=== PATIENT | male | born 1930 | race Caucasian/White ===

== ENCOUNTER 2017-04-17 20:36 | Inpatient (IN) | payer MEDICARE ==
[~2017-04-17 20:36] MED LIST: ALBUTEROL SULFATE 90 MCG/ACT HFA 8 GM INHALER INH PRN; BENZ1CAP54 PO; BENZONATATE 100 MG CAP PO PRN; BUDE0.25 NEB; DOXA1TAB43 PO; FURO40TA PO; GABA800T PO; GUAI100S5 PO; IPRASOL INH; MEDR4PAK PO; METF500T PO; SIMV40TA PO; TRAM1CAP21 PO; VENTAER INH; ZOFR4TAB3 SL
[2017-04-17 20:45] VITALS: BP 143/81; PULSE 112; RESP 22; TEMP 97.9; O2SAT 98
[2017-04-17] MEDS: GABAPENTIN 400 MG CAP PO SCH (21:52)
[2017-04-17] MEDS ORDERED: RESP: ALBUTEROL 2.5 MG/IPRATROPIUM 0.5 MG NEB (PRN) NEB (23:30)
[2017-04-17] MEDS: RESP: BUDESONIDE 0.25 MG/2 ML NEB NEB SCH (23:37)
[2017-04-17 23:40] VITALS: O2SAT 94
[2017-04-18] VITALS (22 sets, daily range): BP systolic 106–155; BP diastolic 52–77; PULSE 80–111; RESP 12–49; TEMP 96.1–98; O2SAT 91–100
[2017-04-18] MEDS: RESP: ALBUTEROL 2.5 MG/IPRATROPIUM 0.5 MG NEB (SCH) NEB ×5 (02:56→19:26)
[2017-04-18] MEDS: GABAPENTIN 400 MG CAP PO SCH ×2 (09:00→21:08)
[2017-04-18] MEDS: FLUTICASONE PROPIONATE 50 MCG/ACT 16 GM NASAL SPRAY NASAL SCH ×2 (09:00→21:08)
[2017-04-18] MEDS ORDERED: methylPREDNISolone SOD SUCC 125 MG/2 ML VIAL IV PUSH ONE (09:15)
[2017-04-18] MEDS ORDERED: GLUCAGON 1 MG/ML VIAL OTHER PRN (09:15)
[2017-04-18] MEDS ORDERED: DEXTROSE 50% IN WATER 50 ML VIAL(D50) IV PUSH PRN (09:15)
[2017-04-18] MEDS: LEVOFLOXACIN 750 MG PREMIX INJ 150 ML IV SCH (09:21)
[2017-04-18] MEDS ORDERED: ENOXAPARIN SODIUM 40 MG/0.4 ML SYRINGE SQ SCH (09:45)
--- NOTE | 2017-04-18 09:53 | HHI.HP ---
[facility] Service [facility] Primary Care Physician Non-Staff Admission Diagnosis Cough Diagnoses: (1) Left lower lobe pneumonia (2) Asthma with COPD with exacerbation Chief Complaint: Shortness of breath Travel History International Travel<30 Days: No Contact w/Intl Traveler <30 Da: No Traveled to Known Affected Are: No Sepsis Criteria SIRS Criteria (2 or more): Heart rate over 90, RR > 20 or PaCO2 < 32 Sepsis Criteria (SIRS+source): Infect source susp/known Severe Sepsis (+one): Lactate >2 Criteria Outcome: Meets sepsis criteria History of Present Illness Written by Radha Sheridan, acting as scribe for Dr. Baca on 04/18/17 at 09:35. This is an 87-year-old elderly male patient who presented to the ED with complaints of worsening shortness of breath, wheezing and nonproductive cough. Patient is seen at bedside in severe respiratory distress and apparently accessary muscle use. Patient's daughter and son-in-law are assisting with obtaining medical records and reason for admission. His family states that he has been coughing for two days now with increasing shortness of breath. Patient does use DuoNeb's at home four times per day which offered little relief. Patient did not get a flu shot this season. Denies any recent sick contacts. Denies any recent chest pain, fever, chills, abdominal pain, nausea, vomiting or diarrhea. Patient is from [place], moved here with his family in December due to not having any electricity. Patient has not established with a PCP here and gets his medications back in [place]. Patient lives with daughter. Review of Systems Constitutional: DENIES: Fever, Chills Eyes: DENIES: Blurred vision, Diplopia Respiratory: COMPLAINS OF: Cough, Shortness of breath, DENIES: Sputum production Cardiovascular: DENIES: Chest pain, Palpitations Gastrointestinal: DENIES: Abdominal pain, Black stools, Bloody stools, Constipation, Diarrhea, Nausea, Vomiting Hematologic/lymphatic: DENIES: Bruising Immunologic/allergic: DENIES: Eczema Psychiatric: COMPLAINS OF: Anxiety Except as stated in HPI: all other systems reviewed are Neg Past Family Social History Past Medical History Asthma COPD Diabetes Kidney stones Past Surgical History Hernia repair Reported Medications Active Reported Furosemide 40 Mg Tab 40 Mg PO DAILY Gabapentin 800 Mg Tab 800 Mg PO BID Benzonatate 100 Mg Cap 100 Mg PO TID PRN Simvastatin 40 Mg Tab 40 Mg PO HS Metformin (Metformin HCl) 500 Mg Tab 500 Mg PO BIDPC Tramadol ER 24 HR (Tramadol HCl) 100 Mg Caper 50 Mg PO DAILY Doxazosin (Doxazosin Mesylate) 8 Mg Tab 8 Mg PO DAILY Ventolin Hfa 18 GM Inh (Albuterol Sulfate) 90 Mcg/Act Aer 1 Puff INH Q4H PRN Duoneb (Ipratropium-Albuterol Neb) 0.5-2.5 Mg/3 Ml Neb 1 Nebule INH Q4HR NEB Budesonide Neb 0.25 Mg/2 Ml Neb 0.25 Mg NEB Q12HR NEB Allergies: Coded Allergies: Penicillins (Verified Allergy, Unknown, 04/17/17) Active Ordered Medications Current Medications Medications (Trade) Dose Ordered Sig/Allen Route Start Time Stop Time Status Last Admin Levofloxacin/ Dextrose 150 ml @ 100 mls/hr Q24H IV 04/18/17 09:00 04/18/17 09:21 (Proair Hfa Inh) 1 puff Q4H PRN INH 04/17/17 19:00 04/18/17 09:02 (Tessalon) 100 mg TID PRN PO 04/17/17 19:00 04/17/17 21:57 (Pulmicort Respule Neb) 0.25 mg Q12HR NEB NEB 04/17/17 20:00 04/17/17 23:37 (Lasix) 40 mg DAILY PO 04/18/17 09:00 (Neurontin) 800 mg BID PO 04/17/17 21:00 (Pravachol) 80 mg HS PO 04/18/17 22:00 (Ultram) 50 mg DAILY PO 04/18/17 09:00 (Flonase Ignacio Spr) 1 spray BID NASAL 04/18/17 09:00 (Duoneb Neb) 1 ampule Q6HR NEB PRN NEB 04/18/17 09:15 (Duoneb Neb) 1 ampule Q4HR NEB NEB 04/18/17 12:00 (NovoLOG SUPPLEMENTAL SCALE) 1 ACHS SLIDING SCALE SQ 04/18/17 12:00 (D50w (Vial) Inj) 25 ml UNSCH PRN IV PUSH 04/18/17 09:15 (Glucagon Inj) 1 mg UNSCH PRN OTHER 04/18/17 09:15 Family History Reviewed. Noncontributory. Social History Denies any tobacco abuse, alcohol or illicit drug use. Physical Exam Vital Signs Vital Signs Date Time Temp Pulse Resp B/P (MAP) Pulse Ox O2 Delivery O2 Flow Rate FiO2 04/18/17 08:00 97.0 88 20 120/58 (78) 96 04/18/17 00:00 96.1 111 20 138/77 (97) 97 04/17/17 23:40 94 Nasal Cannula 2.00 04/17/17 20:45 97.9 112 22 143/81 (101) 98 Physical Exam GENERAL: Well-nourished, well-developed elderly male patient severe respiratory distress, audible wheezing and accessory muscle use. SKIN: Warm and dry. No rash. HEAD: Normocephalic. Atraumatic. EYES: Pupils equal and round. No scleral icterus. No injection or drainage. ENT: No nasal bleeding or discharge. Mucous membranes pink and moist. NECK: Supple. Trachea midline. CARDIOVASCULAR: Regular rate and rhythm. S1, S2 noted. No murmur appreciated. RESPIRATORY: Diminished breath sounds throughout. Breath sounds equal bilaterally. GASTROINTESTINAL: Abdomen soft, non-tender, nondistended. Normoactive bowel sounds x4. MUSCULOSKELETAL: No obvious deformities. Extremities without clubbing, cyanosis , or edema. NEUROLOGICAL: Awake and alert. No obvious cranial nerve deficits. Motor grossly within normal limits. 5/5 muscle strength in bilateral upper and lower extremities. Laboratory Laboratory Tests Test 04/18/17 09:15 Blood Gas Puncture Site RT RADIAL Blood Gas Patient Temperature 98.6 Blood Gas HCO3 19 Blood Gas Base Excess -3.2 Blood Gas Oxygen Saturation 95 Arterial Blood pH 7.56 Arterial Blood Partial Pressure CO2 21 Arterial Blood Partial Pressure O2 70 Arterial Blood Oxygen Content 15.9 Arterial Blood Carboxyhemoglobin 1.5 Arterial Blood Methemoglobin 0.8 Blood Gas Hemoglobin 11.9 Oxygen Delivery Device NASAL CANNULA Blood Gas Liter Flow 2 Date/Time Source Procedure Growth Status 04/18/17 06:39 Urine Random Urine Legionella Antigen Pending Received 04/18/17 06:39 Urine Random Urine Streptococcus pneumoniae Antigen (M Pending Received Septic Shock Reassessment Septic shock perfusion: reassessment completed Caprini VTE Risk Assessment Caprini VTE Risk Assessment: Mod/High Risk (score >= 2) Caprini Risk Assessment Model Point Value = 1 Point Value = 2 Point Value = 3 Point Value = 5 Age 41-60 Minor surgery BMI > 25 kg/m2 Swollen legs Varicose veins or History of unexplained or recurrent spontaneous Oral contraceptives or hormone replacement Sepsis (< 1 month) Serious lung disease, including pneumonia (< 1 month) Abnormal pulmonary function Acute myocardial infarction Congestive heart failure (< 1 month) History of inflammatory bowel disease Medical patient at bed rest Age 61-74 Arthroscopic surgery Major open surgery (> 45 min) Laparoscopic surgery (> 45 min) Malignancy Confined to bed (> 72 hours) Immobilizing plaster cast Central venous access Age >= 75 History of VTE Family history of VTE Factor V Leiden Prothrombin [id number] Lupus anticoagulant Anticardiolipin antibodies Elevated serum homocysteine Heparin-induced thrombocytopenia Other congenital or acquired thrombophilia Stroke (< 1 month) Elective arthroplasty Hip, pelvis, or leg fracture Acute spinal cord injury (< 1 month) Prophylaxis Regimen Total Risk Factor Score Risk Level Prophylaxis Regimen 0-1 Low Early ambulation 2 Moderate Order ONE of the following: *Sequential Compression Device (SCD) *Heparin 5000 units SQ BID 3-4 Higher Order ONE of the following medications: *Heparin 5000 units SQ TID *Enoxaparin/Lovenox 40 mg SQ daily (WT < 150 kg, CrCl > 30 mL/min) *Enoxaparin/Lovenox 30 mg SQ daily (WT < 150 kg, CrCl > 10-29 mL/min) *Enoxaparin/Lovenox 30 mg SQ BID (WT < 150 kg, CrCl > 30 mL/min) AND/OR *Sequential Compression Device (SCD) 5 or more Highest Order ONE of the following medications: *Heparin 5000 units SQ TID (Preferred with Epidurals) *Enoxaparin/Lovenox 40 mg SQ daily (WT < 150 kg, CrCl > 30 mL/min) *Enoxaparin/Lovenox 30 mg SQ daily (WT < 150 kg, CrCl > 10-29 mL/min) *Enoxaparin/Lovenox 30 mg SQ BID (WT < 150 kg, CrCl > 30 mL/min) AND *Sequential Compression Device (SCD) Assessment and Plan Problem List: (1) Asthma with COPD with exacerbation ICD Code: J44.1 - Chronic obstructive pulmonary disease with (acute) exacerbation; J45.901 - Unspecified asthma with (acute) exacerbation (2) Left lower lobe pneumonia ICD Code: J18.1 - Lobar pneumonia, unspecified organism (3) Hyperlipidemia ICD Code: E78.5 - Hyperlipidemia, unspecified (4) Type 2 diabetes mellitus ICD Code: E11.9 - Type 2 diabetes mellitus without complications Assessment and Plan This is an 87-year-old male with a history of COPD who presents for cough and wheezing. His family states that he has been coughing for two days now with increasing shortness of breath. Asthma with COPD with acute exacerbation Left lower lobe community-acquired pneumonia, meet sepsis criteria (tachycardia , tachypnea, lactic acidosis) Rule out PE Patient with acute respiratory distress and respiratory alkalosis. STAT ABG obtained. Chest x-ray reviewed showing bibasilar pneumonia crater left lower lobe. D-dimer ordered and pending. Follow. Lactic acid per protocol. Was given azithromycin and cefepime in ED. Patient placed on Levaquin IV. Gentle hydration. BNP pending. Continue DuoNeb's scheduled and when necessary as needed. Continue home inhalers. Patient given methylprednisone 1 in ED. Now scheduled. Patient transferred to ICU for closer monitoring. Obtain labs including BNP, mag and phosphorus, and B12. Follow. Consult placed pulmonology, appreciate input and further recommendations. Continue supplemental O2 as needed. Supportive care. Hyperlipidemia: Restart home statin. Type 2 diabetes, chronic: Accu-Cheks before meals and at bedtime, sliding scale , cover as needed. Monitor blood sugars. DVT prophylaxis: SCDs. Code Status Alternative code: No intubation. CPR and cardiac medications. Discussed Condition With Patient's daughter. Physician Certification 2 Midnight Certification Type: Admission for Inpatient Services Order for Inpatient Services The services are ordered in accordance with Medicare regulations or non- Medicare payer requirements, as applicable. In the case of services not specified as inpatient-only, they are appropriately provided as inpatient services in accordance with the 2-midnight benchmark. Estimated LOS (days): 3 3 days is the estimated time the patient will need to remain in the hospital, assuming treatment plan goals are met and no additional complications. Post-Hospital Plan: Not yet determined Notes: This note was transcribed by stephen Sheridan. I, Dr. Oziel Baca personally performed the history, physical exam, and medical decision making; and confirmed the accuracy of the information in the transcribed note. Authenticated by Dr. Oziel Baca on 04/18/17 at 20:42. Radha Sheridan Apr 18, 2017 09:53 Oziel Baca MD Apr 18, 2017 20:42
[2017-04-18] MEDS ORDERED: ENOXAPARIN SODIUM 80 MG/0.8 ML SYRINGE SQ ONE (10:00)
[2017-04-18] MEDS ORDERED: GABAPENTIN 400 MG CAP PO ONE (10:00)
[2017-04-18] MEDS ORDERED: SODIUM CHLORID 0.9% 500 ML INJ 500 ML IV ONE (10:00)
[2017-04-18] MEDS ORDERED: ALPRAZolam 1 MG TAB PO ONE (10:00)
[2017-04-18] MEDS: traMADol HCL 50 MG TAB PO SCH (10:17)
[2017-04-18] MEDS: FUROSEMIDE 40 MG TAB PO SCH (10:17)
[2017-04-18 10:54] LABS: AUTOMATED NEUTROPHIL # 7.6 TH/MM3 (1.8-7.7); BASOPHIL # 0.2 TH/MM3 (0-0.2); BASOPHIL % 2.4 % (0.0-2.0); EOSINOPHIL % 0.3 % (0.0-4.0); HEMATOCRIT 33.7 % (39.0-51.0); HEMOGLOBIN 11.3 GM/DL (13.0-17.0); LYMPH % 13.5 % (9.0-44.0); LYMPHOCYTE # 1.3 TH/MM3 (1.0-4.8); MEAN CELL VOLUME 100.6 FL (80.0-100.0); MEAN CORPUSCULAR HEMOGLOBIN 33.8 PG (27.0-34.0); MEAN CORPUSCULAR HGB CONC 33.7 % (32.0-36.0); MEAN PLATELET VOLUME 7.6 FL (7.0-11.0); MONO % 6.4 % (0.0-8.0); MONOCYTE # 0.6 TH/MM3 (0-0.9); NEUT % 77.4 % (16.0-70.0); PLATELET COUNT 270 TH/MM3 (150-450); RED BLOOD COUNT 3.35 MIL/MM3 (4.50-5.90); WHITE BLOOD COUNT 9.7 TH/MM3 (4.0-11.0)
[2017-04-18 10:57] LABS: CHLORIDE 106 MEQ/L (98-107); SODIUM (NA) 139 MEQ/L (136-145)
[2017-04-18 11:00] LABS: ALBUMIN 3.1 GM/DL (3.4-5.0); CALCIUM 8.8 MG/DL (8.5-10.1)
[2017-04-18 11:01] LABS: BICARBONATE 21.1 MEQ/L (21.0-32.0); BLOOD UREA NITROGEN 20 MG/DL (7-18); GLUCOSE,RANDOM 138 MG/DL (74-106); MAGNESIUM 2.1 MG/DL (1.5-2.5)
[2017-04-18 11:03] LABS: ALT (GPT) 13 U/L (12-78)
[2017-04-18 11:04] LABS: AST (GOT) 18 U/L (15-37); GLOMERULAR FILTRATION RATE 63 ML/MIN (>89); PHOSPHORUS 1.2 MG/DL (2.5-4.9)
[2017-04-18 11:05] LABS: TOTAL BILIRUBIN ADULT 0.4 MG/DL (0.2-1.0); TOTAL PROTEIN 6.9 GM/DL (6.4-8.2)
[2017-04-18 11:06] LABS: ALKALINE PHOSPHATASE 43 U/L (45-117)
[2017-04-18] MEDS: OXYMETAZOLINE HCL 0.05% 15 ML NASAL SPRAY NASAL SCH ×2 (12:00→21:08)
[2017-04-18] MEDS: RESP: BUDESONIDE 0.25 MG/2 ML NEB NEB SCH ×2 (12:12→19:25)
[2017-04-18] MEDS ORDERED: POTASSIUM PHOSPHATE INJ 15 MMOL in SODIUM CHLORIDE 0.9% INJ 150 ML IV ONE (13:00)
[2017-04-18] MEDS: methylPREDNISolone SOD SUCC 40 MG/1 ML VIAL IV PUSH SCH ×2 (13:33→21:10)
[2017-04-18] MEDS: INSULIN ASPART SUPPLEMENTAL SCALE SQ SCH ×3 (13:33→21:20)
[2017-04-18] MEDS ORDERED: IOHEXOL 350 MG/ML 10 ML VIAL (for RAD DIAG) IVCONTRAST ONE (18:39)
--- NOTE | 2017-04-18 18:47 | RADRPT ---
EXAM DATE/TIME: 04/18/2017 18:30 [facility] COMPARISON: No previous studies available for comparison. INDICATIONS : Short of breath, cough and wheezing x 2 days. IV CONTRAST: 75 cc Omnipaque 350 (iohexol) IV RADIATION DOSE: 18.88 CTDIvol (mGy) MEDICAL HISTORY : Diabetes mellitus type 2. Chronic obstructive pulmonary disease. Renal calculi.Hypertension. Asthma. SURGICAL HISTORY : None. ENCOUNTER: Initial ACUITY: 2 days PAIN SCALE: 0/10 LOCATION: chest TECHNIQUE: Volumetric scanning of the chest was performed using a pulmonary embolism protocol MIP images were re constructed. Using automated exposure control and adjustment of the mA and/or kV according to patien t size, radiation dose was kept as low as reasonably achievable to obtain optimal diagnostic quality images. DICOM format image data is available electronically for review and comparison. Follow-up recommendations for detected pulmonary nodules are based at a minimum on nodule size and pa tient risk factors according to Fleischner Society Guidelines. FINDINGS: There is no pulmonary embolus. Patchy areas of dense and somewhat nodular consolidation are seen in both mid and lower lungs with a posterior, basilar predominant distribution. No effusion or pneumothorax. No mediastinal, hilar or axillary lymphadenopathy. Heart size within normal limits. Old, healed right rib fractures. Also a large cyst of the right kidney and a small hiatal hernia seen. are noted. CONCLUSION: 1. No pulmonary embolus. 2. Basilar predominant bilateral pneumonia, presumably infectious or inflammatory. Some of the areas of consolidation are somewhat nodular in configuration. Medical management/follow up recommended and with a followup noncontrast chest CT in approximately 3-6 months. 3. Old, healed right rib fractures. Also a cyst of the right kidney and small hiatal hernia incidenta lly noted. Tapan Goddard MD on April 18, 2017 at 18:42 Board Certified Radiologist. This report was verified electronically.
[2017-04-18] MEDS ORDERED: ALPRAZolam 0.25 MG TAB PO PRN (20:15)
[2017-04-18] MEDS ORDERED: traMADol HCL 50 MG TAB PO PRN (20:15)
[2017-04-18] MEDS ORDERED: ENOXAPARIN SODIUM 80 MG/0.8 ML SYRINGE SQ SCH (21:00)
[2017-04-18] MEDS: PRAVASTATIN SOD 80 MG TAB PO SCH (22:22)
[2017-04-18] MEDS: BUDESONIDE-FORMOTEROL 80/4.5 MCG INHALER INH SCH (22:22)
[2017-04-19] VITALS (30 sets, daily range): BP systolic 85–162; BP diastolic 39–82; PULSE 72–112; RESP 13–41; TEMP 97.6–98.6; O2SAT 85–99
[2017-04-19] MEDS: RESP: ALBUTEROL 2.5 MG/IPRATROPIUM 0.5 MG NEB (PRN) NEB (04:18)
[2017-04-19 04:52] LABS: AUTOMATED NEUTROPHIL # 9.4 TH/MM3 (1.8-7.7); BASOPHIL # 0.6 TH/MM3 (0-0.2); BASOPHIL % 4.9 % (0.0-2.0); EOSINOPHIL % 0.1 % (0.0-4.0); HEMATOCRIT 36.5 % (39.0-51.0); HEMOGLOBIN 12.3 GM/DL (13.0-17.0); LYMPH % 7.5 % (9.0-44.0); LYMPHOCYTE # 0.8 TH/MM3 (1.0-4.8); MEAN CELL VOLUME 99.9 FL (80.0-100.0); MEAN CORPUSCULAR HEMOGLOBIN 33.7 PG (27.0-34.0); MEAN CORPUSCULAR HGB CONC 33.7 % (32.0-36.0); MEAN PLATELET VOLUME 7.8 FL (7.0-11.0); MONO % 4.6 % (0.0-8.0); MONOCYTE # 0.5 TH/MM3 (0-0.9); NEUT % 82.9 % (16.0-70.0); PLATELET COUNT 233 TH/MM3 (150-450); RED BLOOD COUNT 3.66 MIL/MM3 (4.50-5.90); RED CELL DISTRIBUTION WIDTH 12.9 % (11.6-17.2); WHITE BLOOD COUNT 11.3 TH/MM3 (4.0-11.0)
[2017-04-19 05:06] LABS: ALBUMIN 3.3 GM/DL (3.4-5.0)
[2017-04-19 05:07] LABS: BICARBONATE 26.3 MEQ/L (21.0-32.0); CALCIUM 8.4 MG/DL (8.5-10.1); MAGNESIUM 2.2 MG/DL (1.5-2.5)
[2017-04-19 05:10] LABS: CREATININE 1.1 MG/DL (0.60-1.30)
[2017-04-19 05:16] LABS: PHOSPHORUS 3.9 MG/DL (2.5-4.9)
[2017-04-19] MEDS: methylPREDNISolone SOD SUCC 40 MG/1 ML VIAL IV PUSH SCH ×2 (06:36→18:00)
[2017-04-19] MEDS: RESP: ALBUTEROL 2.5 MG/IPRATROPIUM 0.5 MG NEB (SCH) NEB ×4 (07:22→19:36)
[2017-04-19] MEDS: RESP: BUDESONIDE 0.25 MG/2 ML NEB NEB SCH (07:23)
[2017-04-19] MEDS: INSULIN ASPART SUPPLEMENTAL SCALE SQ SCH ×4 (08:00→21:00)
[2017-04-19] MEDS: FLUTICASONE PROPIONATE 50 MCG/ACT 16 GM NASAL SPRAY NASAL SCH ×2 (09:00→21:54)
[2017-04-19] MEDS: OXYMETAZOLINE HCL 0.05% 15 ML NASAL SPRAY NASAL SCH ×2 (09:00→21:54)
[2017-04-19] MEDS: BUDESONIDE-FORMOTEROL 80/4.5 MCG INHALER INH SCH ×2 (09:00→21:54)
[2017-04-19] MEDS ORDERED: ENOXAPARIN SODIUM 40 MG/0.4 ML SYRINGE SQ SCH (10:00)
[2017-04-19] MEDS: LEVOFLOXACIN 750 MG PREMIX INJ 150 ML IV SCH (10:40)
[2017-04-19] MEDS: traMADol HCL 50 MG TAB PO SCH (10:41)
[2017-04-19] MEDS: GABAPENTIN 400 MG CAP PO SCH ×2 (10:42→21:54)
[2017-04-19] MEDS: FUROSEMIDE 40 MG TAB PO SCH (10:42)
--- NOTE | 2017-04-19 13:23 | HHI.PR ---
Subjective Remarks Follow-up asthma with COPD with acute exacerbation and pneumonia. Patient seen and examined, sitting up on bedside commode. Patient has improved overnight, still with continued expiratory diffuse wheezing and posterior lobes. On supplemental O2. States he feels much better. Eating well. Denies any chest pain or abdominal pain or nausea, vomiting or diarrhea. Objective Vitals Vital Signs Date Time Temp Pulse Resp B/P (MAP) Pulse Ox O2 Delivery O2 Flow Rate FiO2 04/19/17 07:23 98 Nasal Cannula 3.00 04/19/17 06:44 97.9 87 20 127/64 (85) 94 04/19/17 05:06 93 18 121/60 (80) 93 04/19/17 04:23 94 15 162/75 (104) 92 04/19/17 03:00 72 20 114/62 (79) 97 04/19/17 02:00 76 13 101/56 (71) 98 04/19/17 01:00 82 18 149/80 (103) 95 04/19/17 00:00 97.6 94 21 129/66 (87) 96 04/18/17 23:10 80 22 128/63 (84) 98 04/18/17 22:23 81 20 113/62 (79) 95 04/18/17 21:00 86 12 126/62 (83) 99 04/18/17 19:25 93 Nasal Cannula 3.00 04/18/17 19:20 90 26 135/63 (87) 91 04/18/17 18:00 88 17 133/67 (89) 93 04/18/17 17:47 92 36 155/70 (98) 97 04/18/17 16:01 82 14 113/58 (76) 04/18/17 16:00 98.0 04/18/17 15:01 88 17 107/66 (80) 04/18/17 14:01 94 19 120/61 (80) I/O 04/18/17 04/18/17 04/18/17 04/19/17 04/19/17 04/19/17 07:00 15:00 23:00 07:00 15:00 23:00 Intake Total 740 ml 155 ml Output Total 375 ml 700 ml Balance 740 ml -220 ml -700 ml Intake Oral 240 ml IV Total 500 ml 155 ml Output Urine Total 375 ml 700 ml # Voids 3 # Bowel Movements 0 1 Result Diagram: 04/19/17 0435 04/19/17 [address] Angiography 04/18/17 0000 Signed Impressions: Service Date/Time: March 18:30 - CONCLUSION: 1. No pulmonary embolus. 2. Basilar predominant bilateral pneumonia, presumably infectious or inflammatory. Some of the areas of consolidation are somewhat nodular in configuration. Medical management/follow up recommended and with a followup noncontrast chest CT in approximately 3-6 months. 3. Old, healed right rib fractures. Also a cyst of the right kidney and small hiatal hernia incidentally noted. Tapan Goddard MD Objective Remarks GENERAL: Well-nourished, well-developed patient On supplemental O2 with mild accessory muscle use SKIN: Warm and dry. No rash. HEAD: Normocephalic. Atraumatic. EYES: Pupils equal and round. No scleral icterus. No injection or drainage. ENT: No nasal bleeding or discharge. Mucous membranes pink and moist. NECK: Supple. Trachea midline. CARDIOVASCULAR: Regular rate and rhythm. S1, S2 noted. No murmur appreciated. RESPIRATORY: No accessory muscle use. Expiratory diffuse wheezing to posterior lobes. Breath sounds equal bilaterally. GASTROINTESTINAL: Abdomen soft, non-tender, nondistended. Normoactive bowel sounds x4. MUSCULOSKELETAL: No obvious deformities. Extremities without clubbing, cyanosis , or edema. NEUROLOGICAL: Awake and alert. No obvious cranial nerve deficits. Motor grossly within normal limits. 5/5 muscle strength in bilateral upper and lower extremities. Normal speech. PSYCHIATRIC: Appropriate mood and affect; insight and judgment normal. A/P Problem List: (1) Asthma with COPD with exacerbation ICD Code: J44.1 - Chronic obstructive pulmonary disease with (acute) exacerbation; J45.901 - Unspecified asthma with (acute) exacerbation (2) Left lower lobe pneumonia ICD Code: J18.1 - Lobar pneumonia, unspecified organism (3) Hyperlipidemia ICD Code: E78.5 - Hyperlipidemia, unspecified (4) Type 2 diabetes mellitus ICD Code: E11.9 - Type 2 diabetes mellitus without complications Assessment and Plan This is an 87-year-old male with a history of COPD who presents for cough and wheezing. His family states that he has been coughing for two days now with increasing shortness of breath. Asthma with COPD with acute exacerbation Left lower lobe community-acquired pneumonia, meet sepsis criteria (tachycardia , tachypnea, lactic acidosis) Rule out PE Patient with acute respiratory distress and respiratory alkalosis. STAT ABG obtained. Chest x-ray reviewed showing bibasilar pneumonia crater left lower lobe. D-dimer mildly elevated. CTA performed showing no PE, bilateral pneumonia with some areas of consolidation. Was given azithromycin and cefepime in ED. Patient placed on Levaquin IV. Gentle hydration. BNP90. Continue DuoNeb's scheduled and when necessary as needed. Continue home inhalers. Patient given methylprednisone 1 in ED. Now scheduled. Will increase dose today, continued wheezing. Patient transferred to ICU for closer monitoring. Monitor BNP, mag and phosphorus, and B12. Consult placed pulmonology, appreciate input and further recommendations. Following patient. Continue supplemental O2 as needed. Supportive care. Hyperlipidemia: Restart home statin. Type 2 diabetes, chronic: Accu-Cheks before meals and at bedtime, sliding scale , cover as needed. Monitor blood sugars. DVT prophylaxis: SCDs. Radha Sheridan Apr 19, 2017 13:23
--- NOTE | 2017-04-19 18:46 | HHI.PR ---
Subjective Remarks Has some cough and wheezing. No fever. C/O Abdominal Discomfort. Objective Vital Signs Date Time Temp Pulse Resp B/P (MAP) Pulse Ox O2 Delivery O2 Flow Rate FiO2 04/19/17 17:00 104 23 93 04/19/17 16:37 98 35 97/57 (70) 97 04/19/17 16:14 106 24 85/39 (54) 99 04/19/17 16:00 100 25 85/39 (54) 98 04/19/17 15:41 100 30 114/56 (75) 98 04/19/17 15:00 108 38 98/53 (68) 99 04/19/17 14:00 112 41 118/72 (87) 96 04/19/17 13:00 98.3 100 33 102/58 (73) 04/19/17 12:00 102 34 99/50 (66) 04/19/17 11:00 90 24 110/54 (72) 04/19/17 10:00 78 13 101/51 (68) 04/19/17 09:00 80 14 97/49 (65) 04/19/17 08:00 98.3 78 14 115/70 (85) 04/19/17 07:23 98 Nasal Cannula 3.00 04/19/17 07:00 84 15 109/63 (78) 04/19/17 06:44 97.9 87 20 127/64 (85) 94 04/19/17 05:06 93 18 121/60 (80) 93 04/19/17 04:23 94 15 162/75 (104) 92 04/19/17 03:00 72 20 114/62 (79) 97 04/19/17 02:00 76 13 101/56 (71) 98 04/19/17 01:00 82 18 149/80 (103) 95 04/19/17 00:00 97.6 94 21 129/66 (87) 96 04/18/17 23:10 80 22 128/63 (84) 98 04/18/17 22:23 81 20 113/62 (79) 95 04/18/17 21:00 86 12 126/62 (83) 99 04/18/17 19:25 93 Nasal Cannula 3.00 04/18/17 19:20 90 26 135/63 (87) 91 I/O 1/25/04/18/17 04/18/17 04/19/17 04/19/17 04/19/17 07:00 15:00 23:00 07:00 15:00 23:00 Intake Total 740 ml 155 ml Output Total 375 ml 700 ml Balance 740 ml -220 ml -700 ml Intake Oral 240 ml IV Total 500 ml 155 ml Output Urine Total 375 ml 700 ml # Voids 3 # Bowel Movements 0 1 Result Diagram: 04/19/17 0435 04/19/17434 Objective Remarks GENERAL: This is a well-nourished, well-developed patient, in mild distress.HEENT: throat clear. Neck no venous distension. CARDIOVASCULAR: Irregular rate and rhythm without murmurs, gallops, or rubs. RESPIRATORY: Diffuse expiratory wheezes, diminish breath sounds bilaterally. Occ basal crackles GASTROINTESTINAL: Abdomen soft, non-tender,nondistended. Normal active bowel sounds MUSCULOSKELETAL: Extremities without clubbing, cyanosis, or edema. NEURO: Alert & Oriented x4 to person, place, time, situation. Moves all ext x4 Assessment and Plan Assessment and Plan Problem List: (1) Asthma with COPD with exacerbation ICD Code: J44.1 - Chronic obstructive pulmonary disease with (acute) exacerbation; J45.901 (2) Bi Basal pneumonia ICD Code: J18.1 - Lobar pneumonia, unspecified organism (3) Hyperlipidemia ICD Code: E78.5 - Hyperlipidemia, unspecified (4) Type 2 diabetes mellitus ICD Code: E11.9 - Type 2 diabetes mellitus without complications Plan : 1. Continue levaquin 750 mg IV daily. 2. Duoneb nebs qid. 3. Add mucomyst 2CC 20 % qid with nebs 4. Cont Lovenox S/Q 40 mg daily. 5. PFT Chest Xray in am. 6. Add Symbicort 160/4.5 Mcg , 2 puffs bid Klarissa Wang MD Apr 19, 2017 18:46
--- NOTE | 2017-04-19 21:51 | RADRPT ---
EXAM DATE/TIME: 04/19/2017 21:06 [facility] COMPARISON: CHEST SINGLE AP, February 07, 2017, 18:38. INDICATIONS : Shortness of breath. MEDICAL HISTORY : Renal calculi. Hypertension Diabetes mellitus type 2. Chronic obstructive pulmonary disease, Ast hma SURGICAL HISTORY : None. ENCOUNTER: Subsequent ACUITY: 3 days PAIN SCORE: 0/10 LOCATION: Bilateral chest FINDINGS: A single view of the chest demonstrates minimal basilar atelectasis. No effusion. No pneumothorax. Re mote left sided rib fractures. CONCLUSION: 1. Minimal basilar atelectasis. Remote left rib fractures. No pneumothorax. German Gleason MD on April 19, 2017 at 21:47 Board Certified Radiologist. This report was verified electronically.
[2017-04-19] MEDS: PRAVASTATIN SOD 80 MG TAB PO SCH (21:54)
[2017-04-19] MEDS: ENOXAPARIN SODIUM 40 MG/0.4 ML SYRINGE SQ SCH (21:55)
[2017-04-19] MEDS: BUDESONIDE-FORMOTEROL 160/4.5 MCG INHALER INH SCH (22:49)
[2017-04-20] VITALS (28 sets, daily range): BP systolic 76–151; BP diastolic 41–78; PULSE 76–108; RESP 12–30; TEMP 97.9–98.6; O2SAT 91–100
[2017-04-20] MEDS: RESP: ALBUTEROL 2.5 MG/IPRATROPIUM 0.5 MG NEB (PRN) NEB
[2017-04-20] MEDS: methylPREDNISolone SOD SUCC 40 MG/1 ML VIAL IV PUSH SCH ×4 (00:43→22:00)
[2017-04-20] MEDS: RESP: ALBUTEROL 2.5 MG/IPRATROPIUM 0.5 MG NEB (SCH) NEB ×4 (07:38→19:17)
[2017-04-20] MEDS: RESP: ACETYLCYSTEINE 10% 10 ML NEB NEB SCH ×4 (07:38→23:31)
[2017-04-20] MEDS: INSULIN ASPART SUPPLEMENTAL SCALE SQ SCH ×4 (07:57→21:16)
[2017-04-20] MEDS: GABAPENTIN 400 MG CAP PO SCH ×2 (08:00→21:16)
[2017-04-20] MEDS: traMADol HCL 50 MG TAB PO SCH (08:01)
[2017-04-20] MEDS: FUROSEMIDE 40 MG TAB PO SCH (08:01)
[2017-04-20] MEDS: OXYMETAZOLINE HCL 0.05% 15 ML NASAL SPRAY NASAL SCH ×2 (08:01→21:17)
[2017-04-20] MEDS: LEVOFLOXACIN 750 MG PREMIX INJ 150 ML IV SCH (08:01)
[2017-04-20] MEDS: BUDESONIDE-FORMOTEROL 160/4.5 MCG INHALER INH SCH ×2 (08:01→21:17)
[2017-04-20] MEDS: FLUTICASONE PROPIONATE 50 MCG/ACT 16 GM NASAL SPRAY NASAL SCH ×2 (08:01→21:17)
--- NOTE | 2017-04-20 09:26 | MB ---
cc: Klarissa ORDONEZ M.D. DATE OF CONSULTATION: 04/20/2017. REASON FOR CONSULTATION: COPD and respiratory distress with pneumonia. HISTORY OF PRESENT ILLNESS: This is an 87-year-old white male who has had a history for asthma and chronic bronchitis and was admitted to the emergency room with progressive shortness of breath, persistent cough, wheezing and hoarseness. The patient has had a cold and cough for about three days which gradually got worse. He has been using nebulized albuterol solution with no significant benefit and he came to the hospital where a CT scan of the chest demonstrated an infiltrate in both lung bases with some nodular configuration and presumably inflammatory. He was then started on antibiotic coverage which included Levaquin 750 milligrams daily and he is also on Solu-Medrol and he was placed on Budesonide nebs. The patient was also placed on anticoagulation including Lovenox. He still has a cough. He has wheezing. He is not bringing up much sputum. He complains of chest tightness and pain. PAST MEDICAL HISTORY: The patient's past history has included: 1. Asthma with chronic bronchitis. 2. A history for kidney stones. 3. History of diabetes mellitus type 2. PAST SURGICAL HISTORY: Surgery includes: 1. Hernia surgery. HABITS: The patient does not smoke. No significant history of alcohol use. ALLERGIES: 1. PENICILLIN. FAMILY HISTORY: Noncontributory. REVIEW OF SYSTEMS: The patient is very hard of hearing. He has hoarseness. He has cough and persistent chest congestion. He has some epigastric distress and reflux. He has urinary frequency. He has had no leg swelling. No calf muscle pains but has some arthritis and he has some anxiety with depression. PHYSICAL EXAMINATION: GENERAL: This is an averagely built elderly man who is laying flat, mildly dyspneic. He is on oxygen at two liters. VITAL SIGNS: Blood pressure is 140/70, pulse 90, respirations 22, temperature 98.2. HEAD, EYES, EARS, NOSE, THROAT: Head normocephalic. The pupils are reactive and equal. Tongue is dry. Throat is injected. Nasal mucosa are clear. NECK: The neck is supple. No bruits or thyroid enlargement. No lymphadenopathy. CHEST: Distant breath sounds with expiratory wheezes bilaterally. There are basilar crackles. HEART: The heart sounds are irregular. S1-S2 with no murmur. No S3. ABDOMEN: The abdomen is soft and nontender. No organomegaly. The bowel sounds are active. EXTREMITIES: Minimal edema with decreased peripheral pulses. NEUROLOGIC: Reflexes are 1+. No gross motor deficits. Cranial nerves are grossly intact. RECTAL: Rectal exam is deferred. SKIN: No lesions observed. IMPRESSION: 1. He has bibasilar pneumonia with atelectasis. 2. Asthma with chronic bronchitis and acute exacerbation. 3. History of diabetes mellitus. 4. Hyperlipidemia. PLAN: 1. The patient has been started on antibiotic therapy including Levaquin 750 milligrams daily, which we will continue for seven days. 2. IV Solu-Medrol 40 milligrams IV q.8 hours. 3. Nebulized DuoNeb solution with Mucomyst 20% solution 2 cc four times a day. 4. Also get a bedside pulmonary function study with bronchodilators. 5. Symbicort 160/4.5 two puffs twice daily to be used in place of Budesonide nebs. 6. The patient will be placed on oxygen at 2.5 liters. 7. Nutritional status needs to be improved. 8. The patient may need some physical therapy for ambulation. 9. Follow up chest x-ray has been ordered for the a.m. I will follow the case with you, Dr. Baca. Thank you for this consultation. MD ANATOLY Kelley/ULISES /6:34 PM /9:07 AM
--- NOTE | 2017-04-20 14:15 | HHI.PR ---
Subjective Remarks Follow up asthma with COPD with acute exacerbation and pneumonia. Patient seen and examined. Sitting up on bedside commode. Breathing comfortably on 2LNC. Mild expiratory wheezing noted. No SOB. Denies any pain. Son and daughter in law at bedside and updated. Hypotensive today. Objective Vitals Vital Signs Date Time Temp Pulse Resp B/P (MAP) Pulse Ox O2 Delivery O2 Flow Rate FiO2 04/20/17 12:00 98 24 133/59 (83) 99 04/20/17 11:00 82 23 98/55 (69) 99 04/20/17 11:00 82 23 98/55 (69) 99 04/20/17 10:00 82 16 116/54 (74) 94 04/20/17 09:00 98.2 98 30 107/67 (80) 93 04/20/17 08:09 88 18 135/78 (97) 93 04/20/17 08:00 82 13 145/78 (100) 100 04/20/17 07:43 95 Nasal Cannula 04/20/17 07:00 76 12 119/63 (81) 97 04/20/17 06:00 98.6 84 14 151/68 (95) 98 04/20/17 05:00 78 13 110/52 (71) 91 04/20/17 04:00 80 12 128/57 (80) 93 04/20/17 03:00 80 16 118/57 (77) 98 04/20/17 02:00 84 12 98/52 (67) 97 04/20/17 01:00 98.4 90 14 108/50 (69) 93 04/20/17 00:00 82 12 127/68 (87) 100 04/19/17 23:00 88 14 113/48 (69) 96 04/19/17 22:00 96 34 131/82 (98) 85 04/19/17 21:00 92 18 112/53 (72) 94 04/19/17 20:15 98.6 92 18 106/55 (72) 98 04/19/17 19:57 94 28 93/51 (65) 85 04/19/17 19:35 94 Nasal Cannula 2.00 04/19/17 19:32 98 34 86/54 (65) 96 04/19/17 18:00 86/54 (65) 04/19/17 17:00 104 23 93 04/19/17 16:37 98 35 97/57 (70) 97 04/19/17 16:14 106 24 85/39 (54) 99 04/19/17 16:00 100 25 85/39 (54) 98 04/19/17 15:41 100 30 114/56 (75) 98 04/19/17 15:00 108 38 98/53 (68) 99 I/O 04/19/17 04/19/17 04/19/17 04/20/17 04/20/17 04/20/17 07:00 15:00 23:00 07:00 15:00 23:00 Intake Total 680 ml 240 ml Output Total 700 ml 721 ml 900 ml 260 ml Balance -700 ml -41 ml -900 ml -20 ml Intake Oral 680 ml 240 ml Output Urine Total 700 ml 720 ml 900 ml 260 ml Stool Total 1 ml # Bowel Movements 1 Result Diagram: 04/19/17 0435 04/19/17 0435 Imaging Last Impressions Chest X-Ray 04/19/17 0000 Signed Impressions: Service Date/Time: Wednesday, April 19, 2017 21:06 - CONCLUSION: 1. Minimal basilar atelectasis. Remote left rib fractures. No pneumothorax. German Gleason MD CT Angiography 04/18/17 0000 Signed Impressions: Service Date/Time: March 18:30 - CONCLUSION: 1. No pulmonary embolus. 2. Basilar predominant bilateral pneumonia, presumably infectious or inflammatory. Some of the areas of consolidation are somewhat nodular in configuration. Medical management/follow up recommended and with a followup noncontrast chest CT in approximately 3-6 months. 3. Old, healed right rib fractures. Also a cyst of the right kidney and small hiatal hernia incidentally noted. Tapan Goddard MD Objective Remarks GENERAL: Well-nourished, well-developed patient On supplemental O2 with mild accessory muscle use SKIN: Warm and dry. No rash. HEAD: Normocephalic. Atraumatic. EYES: Pupils equal and round. No scleral icterus. No injection or drainage. ENT: No nasal bleeding or discharge. Mucous membranes pink and moist. NECK: Supple. Trachea midline. CARDIOVASCULAR: Regular rate and rhythm. S1, S2 noted. No murmur appreciated. RESPIRATORY: No accessory muscle use. Expiratory diffuse wheezing to posterior lobes. Breath sounds equal bilaterally. GASTROINTESTINAL: Abdomen soft, non-tender, nondistended. Normoactive bowel sounds x4. MUSCULOSKELETAL: No obvious deformities. Extremities without clubbing, cyanosis , or edema. NEUROLOGICAL: Awake and alert. No obvious cranial nerve deficits. Motor grossly within normal limits. 5/5 muscle strength in bilateral upper and lower extremities. Normal speech. PSYCHIATRIC: Appropriate mood and affect; insight and judgment normal. A/P Problem List: (1) Asthma with COPD with exacerbation ICD Code: J44.1 - Chronic obstructive pulmonary disease with (acute) exacerbation; J45.901 - Unspecified asthma with (acute) exacerbation (2) Left lower lobe pneumonia ICD Code: J18.1 - Lobar pneumonia, unspecified organism (3) Hyperlipidemia ICD Code: E78.5 - Hyperlipidemia, unspecified (4) Type 2 diabetes mellitus ICD Code: E11.9 - Type 2 diabetes mellitus without complications Assessment and Plan This is an 87-year-old male with a history of COPD who presents for cough and wheezing. His family states that he has been coughing for two days now with increasing shortness of breath. Asthma with COPD with acute exacerbation Left lower lobe community-acquired pneumonia, meet sepsis criteria (tachycardia , tachypnea, lactic acidosis) Rule out PE Patient with acute respiratory distress and respiratory alkalosis. STAT ABG obtained. Chest x-ray reviewed showing bibasilar pneumonia crater left lower lobe. D-dimer mildly elevated. CTA performed showing no PE, bilateral pneumonia with some areas of consolidation. Was given azithromycin and cefepime in ED. Patient placed on Levaquin IV. Gentle hydration. BNP90. Continue DuoNeb's scheduled and when necessary as needed. Continue home inhalers. Patient given methylprednisone 1 in ED. Now scheduled. Continue IV steroids. Patient transferred to ICU for closer monitoring. Monitor BNP, mag and phosphorus, and B12. Consult placed pulmonology, appreciate input and further recommendations. Following patient. PFTs at bedside per pulmonology orders. Continue supplemental O2 as needed. Supportive care. PT eval and treat. Appreciate recommendations. Hypotension: Will give 500 ml bolus. Continue to monitor BP trends. Hyperlipidemia: Restart home statin. Type 2 diabetes, chronic: Accu-Cheks before meals and at bedtime, sliding scale , cover as needed. Monitor blood sugars. DVT prophylaxis: SCDs. Radha Sheridan Apr 20, 2017 14:15
[2017-04-20] MEDS ORDERED: SODIUM CHLORID 0.9% 500 ML INJ 500 ML IV ONE (15:45)
[2017-04-20] MEDS: TAMSULOSIN HCL 0.4 MG CAP PO SCH (16:38)
[2017-04-20] MEDS: PRAVASTATIN SOD 80 MG TAB PO SCH (21:16)
[2017-04-20] MEDS: ENOXAPARIN SODIUM 40 MG/0.4 ML SYRINGE SQ SCH (21:17)
[2017-04-21] VITALS (14 sets, daily range): BP systolic 110–151; BP diastolic 52–74; PULSE 74–94; RESP 10–28; TEMP 97.6–99.4; O2SAT 89–99
[2017-04-21] MEDS: methylPREDNISolone SOD SUCC 40 MG/1 ML VIAL IV PUSH SCH (06:02)
[2017-04-21] MEDS: RESP: ACETYLCYSTEINE 10% 10 ML NEB NEB SCH ×2 (07:16→14:34)
[2017-04-21] MEDS: RESP: ALBUTEROL 2.5 MG/IPRATROPIUM 0.5 MG NEB (SCH) NEB ×3 (07:16→14:33)
[2017-04-21] MEDS: INSULIN ASPART SUPPLEMENTAL SCALE SQ SCH ×2 (08:00→12:00)
[2017-04-21] MEDS: LEVOFLOXACIN 750 MG PREMIX INJ 150 ML IV SCH (08:30)
[2017-04-21] MEDS: OXYMETAZOLINE HCL 0.05% 15 ML NASAL SPRAY NASAL SCH (08:31)
[2017-04-21] MEDS: BUDESONIDE-FORMOTEROL 160/4.5 MCG INHALER INH SCH (08:31)
[2017-04-21] MEDS: TAMSULOSIN HCL 0.4 MG CAP PO SCH (08:31)
[2017-04-21] MEDS: GABAPENTIN 400 MG CAP PO SCH (08:31)
[2017-04-21] MEDS: FLUTICASONE PROPIONATE 50 MCG/ACT 16 GM NASAL SPRAY NASAL SCH (08:31)
[2017-04-21] MEDS: traMADol HCL 50 MG TAB PO SCH (08:32)
[2017-04-21] MEDS: FUROSEMIDE 40 MG TAB PO SCH (08:32)
[2017-04-21] MEDS ORDERED: GETGO ROLLING W1 MI1 (12:52)
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
--- NOTE | 2017-04-21 12:53 | HHI.DCPOC ---
Discharge Care Plan Diagnosis: (1) Left lower lobe pneumonia (2) Asthma with COPD with exacerbation (3) Type 2 diabetes mellitus (4) Hyperlipidemia Goals to Promote Your Health * To prevent worsening of your condition and complications * To maintain your health at the optimal level Directions to Meet Your Goals Take your medications as prescribed Follow your dietary instruction Follow activity as directed Keep your appointments as scheduled Take your immunizations and boosters as scheduled If your symptoms worsen call your PCP, if no PCP go to Urgent Care Center or Emergency Room Smoking is Dangerous to Your Health. Avoid second hand smoke Call the 24-hour hour crisis hotline for domestic abuse at Radha Sheridan Apr 21, 2017 12:52
[2017-04-21] MEDS ORDERED: LEVA750T9 PO (12:59)
[2017-04-21] MEDS ORDERED: TAMS5CAP PO (12:59)
[2017-04-21] MEDS ORDERED: OXYM.05%I NASAL (12:59)
[2017-04-21] MEDS ORDERED: FLUT50SP NASAL (12:59)
[2017-04-21] MEDS ORDERED: PRED10PA PO (12:59)
[2017-04-21] MEDS ORDERED: DOXA1TAB43 PO (13:17)
[2017-04-21] MEDS ORDERED: BENZ1CAP54 PO (13:17)
[2017-04-21] MEDS ORDERED: Budeson-Formot 160-4.5 Mcg Inh INH (13:17)
[2017-04-21] MEDS ORDERED: GABA800T PO (13:17)
[2017-04-21] MEDS ORDERED: IPRASOL INH (13:17)
[2017-04-21] MEDS ORDERED: SIMV40TA PO (13:17)
[2017-04-21] MEDS ORDERED: FURO40TA PO (13:17)
[2017-04-21] MEDS ORDERED: Albuterol-Ipratropium Neb NEB (13:17)
[2017-04-21] MEDS ORDERED: VENTAER INH (13:17)
== END 2017-04-21 15:45 | disposition home or self-care (01) | DRG 190 ==
LOC: PHEDDLT 20:36 → PH3A 20:37 → PHICU 04-18 09:58
PROVIDERS: ADMIT Hospitalist; ATTEND Hospitalist
DX: J44.1 Chronic obstructive pulmonary disease with (acute) exacerbation (principal); J18.1 Lobar pneumonia, unspecified organism; E87.4 Mixed disorder of acid-base balance; R06.03 Acute respiratory distress; I95.9 Hypotension, unspecified; E11.9 Type 2 diabetes mellitus without complications; J45.901 Unspecified asthma with (acute) exacerbation; J98.11 Atelectasis; Z79.84 Long term (current) use of oral hypoglycemic drugs; J44.0 Chronic obstructive pulmonary disease with (acute) lower respiratory infection; E78.5 Hyperlipidemia, unspecified
CPT/HCPCS: 36600; 71045; 71046; 71275; 80053; 80069; 82607; 82805; 82948; 83605; 83735; 83880; 84100; 85025; 85379; 87040; 87449; 87804; 93005; 94060; 94640; 94664; 96361; 96365; 96367; 96375; J0456; J0692; J0696; J1650; J1815; J1956; J2920; J2930; J7030; J7040; J7050; J7608; J7626; Q9967